=== PATIENT | male | born 2000 | race Caucasian/White ===

== ENCOUNTER 2021-11-13 03:14 | Emergency (ER) | payer OTHER ==
[~2021-11-13] VITALS: Ht 185.4 cm; Wt 148.8 kg
[2021-11-13] MEDS ORDERED: IBUPROFEN 400MG TABLET PO ONE (05:30)
[2021-11-13] MEDS ORDERED: TOPUD PO (05:58)
[2021-11-13 06:15] VITALS: BP 139/76
== END 2021-11-13 06:20 | disposition home or self-care (01) ==
LOC: ER 03:14
DX: R07.89 Other chest pain (principal)
CPT/HCPCS: 71045; 93005; 99283